=== PATIENT | male | born 2005 | race Caucasian/White ===

== ENCOUNTER → 2024-08-25 | Outpatient (CLI) | payer SELFPAY ==
--- NOTE | 2024-08-25 14:33 | RAD_ITS ---
HISTORY: THORACIC COMPRESSION FRACTURES. TECHNIQUE: XR Spine Thoracic 2 Views. COMPARISON: None. FINDINGS: VERTEBRAE: Mild loss of height at the superior endplates of T10, T11, and T12. Other vertebral body heights maintained. ALIGNMENT: No significant anterior or posterior subluxation. INTERVERTEBRAL DISCS: Preservation of intervertebral disc spaces. SOFT TISSUES: Unremarkable paraspinal soft tissues. RAD/Thoracic Spine 3 Views IMPRESSION: Mild T10, T11, and T12 compression fractures. Electronically Signed: Venita Jarrett MD at 10:15 EDT ,
== END | disposition home or self-care (01) ==
PROVIDERS: PCP Family Medicine
DX: S22.079A Unspecified fracture of T9-T10 vertebra, initial encounter for closed fracture (principal); S22.089A Unspecified fracture of T11-T12 vertebra, initial encounter for closed fracture
CPT/HCPCS: 72072